=== PATIENT | male | born 1970 | race Caucasian/White ===

== ENCOUNTER 2018-09-06 11:08 | Observation (INO) ==
[2018-09-06] MEDS ORDERED: fentaNYL CITRATE/PF 50 MCG/ML AMPUL ONE (11:13)
[2018-09-06] MEDS ORDERED: DIPHTH,PERTUSS(ACELL),TET VAC 0.5 ML VIAL IM ONE (11:16)
[2018-09-06] MEDS ORDERED: ceFAZolin SODIUM/DEXTROSE,ISO 2 GM/50 ML BAG IV ONE ×2 (11:16→12:00)
[2018-09-06] MEDS ORDERED: fentaNYL CITRATE/PF 50 MCG/ML AMPUL IV ONE ×2 (11:17→11:46)
[2018-09-06 11:34] LABS: Hematocrit 38.1 % (42.0-52.0); Hemoglobin 12.5 gm/dL (13.5-18.0); Mean Cell Volume 87.8 fl (78-100); Mean Corpuscular Hemoglobin 28.8 pg (27-31); Mean Corpuscular Hgb Conc 32.8 g/dl (32-36); Neutrophil % 69.9 % (42-75.0); Platelet Count 386 K/mm3 (150-450); Red Blood Count 4.34 M/mm3 (4.7-6.0); Red Cell Distribution Width 13.4 % (11.5-14.0); White Blood Count 15.7 K/mm3 (4.0-10.5)
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
[2018-09-06 11:49] LABS: ALT 19 U/L (19-67); AST 23 U/L (0-48); Albumin * 3.4 gm/dl (3.4-5.0); Alkaline Phosphatase * 102 U/L (50-170); Anion Gap 22.1 mmol/L (6.8-13.8); BUN/Creatinine Ratio 11.4 (9.0-21.6); Bilirubin, Total 0.3 mg/dL (0.0-1.1); Blood Urea Nitrogen 15 mg/dL (6-23); Ca. Corrected For Albumin 9.3 mg/dL (8.4-10.2); Calcium * 9.1 mg/dL (7.9-10.9); Carbon Dioxide 18.8 mmol/L (24-32.6); Chloride 103 mmol/L (97-106); Glucose * 105 mg/dL (70-110); Potassium 3.9 mmol/L (3.4-4.6); Sodium 140 mmol/L (132-142); Total Protein 6.8 gm/dL (6.2-8.2)
[2018-09-06] MEDS ORDERED: NORMAL SALINE 1,000 ML IV PRN ×3 (13:04→14:00)
[2018-09-06 13:11] LABS: Cocaine Ur Negative (NEGATIVE); Urine Barbiturate Negative (NEGATIVE); Urine Benzodiazepines Negative (NEGATIVE); Urine Opiates Negative (NEGATIVE); Urine PCP Negative (NEGATIVE); Urine THC Negative (NEGATIVE)
[2018-09-06] MEDS ORDERED: ACETAMINOPHEN 325 MG TABLET PO PRN (14:50)
[2018-09-06] MEDS ORDERED: HYDROcodone/ACETAMINOPHEN 1 EACH TABLET PO PRN (14:50)
[2018-09-06] MEDS ORDERED: IBUPROFEN 800 MG TABLET PO PRN (14:50)
--- NOTE | 2018-09-06 15:06 | ANES ---
Anesthesia Pre Procedure Eval Vitals/Labs: Last Vital Signs Temp 36.0 C 09/06/18 11:41 Pulse 86 09/06/18 11:41 Resp 12 09/06/18 11:41 BP 97/41 09/06/18 11:41 Pulse Ox 94 09/06/18 11:41 HOME MEDICATIONS carBAMazepine [Tegretol] 200 mg PO BID #60 tab 11/18/17 [Last Taken Unknown] alprazolam 2 mg tablet 2 mg PO BID PRN #60 tab 09/03/18 [Last Taken Unknown] Allergies/Adverse Reactions: Allergies Allergy/AdvReac Type Severity Reaction Status Date / Time phenytoin sodium Allergy Intermediate Verified 02/23/12 19:58 [From Dilantin] phenytoin sodium extended Allergy Intermediate Verified 02/23/12 19:58 [From Dilantin] methylphenidate HCl Allergy Mild Verified 02/23/12 19:57 [From Ritalin] - Planned Procedure Planned Procedure: DOG BITE Medication List Reviewed:: Yes Allergies Verified: Yes Medical History (Updated 09/06/18 @ 11:44 by Tammy Jimenez DO) Seizures Surgical History (Updated 11/18/17 @ 20:37 by Madeline Albright RN) History of neck surgery - Airway/Neck/Teeth Within Normal Limits:: Yes Denture Type: Full upper, Full lower Mallampatti Score: 2 Thyromental (T-M) distance: > 6 cm Mandibulo Hyoid distance: > 3 cm Comments:: c-spine brace in place - Respiratory Respiratory Physical: decreased breath sounds Smoking Status: Current every day smoker Discussed smoking cessation including day of surgery: No - pt. unable to communicate Sleep Apnea currently treated: No Sleep Apnea by current assessment: No - Cardiovascular Tolerate Activity: Fair Heart Sounds: S1 & S2, Regular - Anesthesia Assessment and Plan ASA Class: PS, III, E Anesthesia Type Plan: General ET Planned difficult intubation/equipment available: No
--- NOTE | 2018-09-06 15:06 | ANES ---
Post Anesthesia Discharge - Transfer of Care Transfer of Care handoff given to nurse: Yes - Discharge from PACU Discharge from PACU when meets criteria: Yes
--- NOTE | 2018-09-06 15:09 | OR ---
Operative Report - Dictated Report Narrative: Date of Service: 09/06/18 Procedure: Closure of multiple dog bite lacerations Pre-procedure diagnosis: Multiple dog bite lacerations Post-procedure diagnosis: Same Surgeon: Dr. Tammy Jimenez Anesthesia: Gen. Indication for procedure: Reggie is a pleasant 47-year-old gentleman with multiple dog bite lacerations. Description of procedure: He was taken to the OR and placed in the supine position and general anesthesia was achieved. He was prepped and draped in the usual sterile fashion. We initially started with the left arm. Each area was irrigated with the Pulsavac tax agent. Dorsal left arm starting superiorly: 4 x 3 cm- closed with 3-0 Vicryl inverted interrupted, 4-0 nylon simple interrupted 9 x 2 cm- closed with 3-0 Vicryl inverted interrupted, 4-0 nylon simple interrupted 4x2 cm- closed with 3-0 Vicryl inverted interrupted, 4-0 nylon simple interrupted 4x2- closed with 3-0 Vicryl inverted interrupted, 4-0 nylon simple interrupted 7x2- closed with 3-0 Vicryl inverted interrupted, 4-0 nylon simple interrupted Volar left arm starting superiorly and going inferiorly .5cm- 4-0 nylon simple interrupted 1x0.5cm- 4-0 nylon simple interrupted 4x2cm- closed with 3-0 Vicryl inverted interrupted, 4-0 nylon simple interrupted 3x5cm- closed with 3-0 Vicryl inverted interrupted, 4-0 nylon simple interrupted 2x.5cm- 4-0 nylon simple interrupted Dorsal Right arm starting superiorly: 3x2cm closed with 3-0 Vicryl inverted interrupted, 4-0 nylon simple interrupted 3x2cm closed with 3-0 Vicryl inverted interrupted, 4-0 nylon simple interrupted 2x0.5cm closed with 3-0 Vicryl inverted interrupted, 4-0 nylon simple interrupted left lateral lex1cm closed with 3-0 Vicryl inverted interrupted, 4-0 nylon simple interrupted LLQ of abdomen 3x0.5cm closed with 4-0 nylon simple interrupted 0.5 x 0.5cm closed with 4-0 nylon simple interrupted left lateral chest 2x0.5cm closed with 4-0 nylon simple interrupted 1x 0.5 cm closed with 4-0 nylon simple interrupted At the end of the case he had a small 1cm laceration on the upper right arm closed with a staple, and an additional 1cm laceration of the left upper arm also closed with a single staple. Complications: none Specimens to pathology: none Estimated blood loss: minimal Disposition: He will be admitted to the floor for observation. His methamphetamine was positive. I cannot clear his C-spine. He has also developed swelling of the right ankle we'll obtain an x-ray. He will be started on Augmentin.
--- NOTE | 2018-09-06 15:23 | ANES ---
Post Anesthesia Assessment - Vital Signs Vitals: Last Vital Signs Temp 35.1 C L 09/06/18 15:00 Pulse 69 09/06/18 15:05 Resp 14 09/06/18 15:05 BP 132/80 09/06/18 15:05 Pulse Ox 98 09/06/18 15:05 Airway Patency: Normal - Mental Status Level Of Consciousness: Drowsy - Pain Level Pain Score: 5 - N/V Assessment Nausea/Vomiting Presence: None Dehydration:: No
[2018-09-06] MEDS: POTASSIUM CHLORIDE 20 MEQ in DEXTROSE 5%-0.5 NORMAL SALINE 990 ML IV SCH (16:19)
[2018-09-06] MEDS: AMOX TR/POTASSIUM CLAVULANATE 875 MG TABLET PO SCH (21:45)
[2018-09-07] MEDS: POTASSIUM CHLORIDE 20 MEQ in DEXTROSE 5%-0.5 NORMAL SALINE 990 ML IV SCH ×2 (02:50→12:00)
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
[2018-09-07] MEDS: AMOX TR/POTASSIUM CLAVULANATE 875 MG TABLET PO SCH (10:21)
[2018-09-07] MEDS ORDERED: BACITRACIN ZINC 30 APPL TUBE TP SCH (13:45)
[2018-09-07 18:18] VITALS: BP 132/73
== END 2018-09-07 18:00 | disposition home or self-care (01) ==
LOC: ER 11:08 → MS 11:08
PROVIDERS: ADMIT Surgery; ATTEND Surgery
CPT/HCPCS: 36415; 71010; 71045; 72170; 73610; 80053; 80307; 80320; 85025; 86850; 90715; 96365; 96366; 99291; G0378; G0390; G0481

== ENCOUNTER 2019-10-21 16:01 | Observation (INO) ==
[2019-10-21] MEDS ORDERED: NORMAL SALINE 1,000 ML IV ONE ×2 (16:49→19:27)
[2019-10-21] MEDS ORDERED: KETOROLAC TROMETHAMINE 30 MG/ML VIAL IV ONE (16:49)
--- NOTE | 2019-10-21 16:50 | ERNOTE ---
Upper Extremity HPI - Narrative Date of Service: 10/21/19 - General Extremities Pain Location: 2nd finger: left Time Seen by Provider: 10/21/19 16:37 Source: patient, family, RN notes reviewed Exam Limitations: clinical condition - Immun/Allergies/Home Medications Immunizations: IMMUNIZATION HX Immunizations Up to Date Yes History of Influenza Vaccine No Hx Pneumococcal Vaccination No Allergies/Adverse Reactions: Allergies Allergy/AdvReac Type Severity Reaction Status Date / Time phenytoin sodium Allergy Intermediate Seizures Verified 10/21/19 16:09 [From Dilantin] phenytoin sodium extended Allergy Intermediate Seizures Verified 10/21/19 16:09 [From Dilantin] methylphenidate HCl Allergy Mild Seizures Verified 10/21/19 16:09 [From Ritalin] Home Medications: HOME MEDICATIONS carBAMazepine [Tegretol] 200 mg PO BID #60 tab 11/18/17 [Last Taken Unknown] alprazolam 2 mg tablet 2 mg PO BID PRN #60 tab 10/13/19 [Last Taken Unknown] - History of Present Illness Narrative: William is a 48-year-old male who presents to the emergency department for an infection in his left index finger. He reports cutting himself with a utility knife 5 days ago. The finger has gradually became more red and edematous since. He reports that there has been a large amount of drainage coming from the wound. He has also began feeling ill with nausea and chills. His tetanus is current. He denies any history of previous wound infections. Occurred: last week Location of Incident: home Other Injuries: Reports: none Prior Treament: Denies: recently seen Review of Systems - Review of Systems Constitutional: Present: chills, malaise EYE: Present: no symptoms reported ENT: Present: no symptoms reported Respiratory: Absent: shortness of breath, cough Cardiology: Absent: chest pain, syncope Gastrointestinal/Abdominal: Present: nausea. Absent: vomiting, diarrhea Genitourinary: Present: no symptoms reported Musculoskeletal: Present: joint pain, joint swelling Skin: Present: lesions, change in color Neurological: Absent: headache, dizziness/light-headedness, seizure Endocrine: Present: no symptoms reported Hematologic/Lymphatic: Absent: easy bruising, easy bleeding Psych: Present: anxiety Medical History (Last Reviewed 10/21/19 @ 17:50 by Erin De Leon NP) Generalized anxiety disorder (Chronic) Dog bite of multiple sites Onset Date: 09/06/18 Back pain Onset Date: Unknown Chronic pain syndrome Onset Date: Unknown Insomnia Onset Date: Unknown Seizures Onset Date: Unknown Pneumothorax on right Onset Date: 01/21/14 Surgical History: Surgical History (Last Reviewed 10/21/19 @ 17:50 by Erin De Leon NP) history of repair of multiple dog bite lacerations Onset Date: 09/06/18 H/O chest tube placement Onset Date: 01/21/14 History of neck surgery Onset Date: Unknown Hx of tooth extraction Onset Date: ~2004 Upper and lower dentures Family History: Family History (Last Reviewed 10/21/19 @ 17:50 by Erin De Leon NP) Mother CVA (cerebral vascular accident) Breast cancer Seizures Father Diabetes unknown health history Sister Alive and well 2 sisters Brother Alive and well Social History: (Last Reviewed 10/21/19 @ 17:50 by Erin De Leon NP) Social History: Marital status: household members: spouse number of children: 3 current occupational status: disabled current occupational exposures/hazards: No Service: No Tobacco: Smoking Status: Current every day smoker Alcohol: alcohol intake: former Substance Use: substance use type: does not use Dietary Habits: caffeine: Yes caffeine comment: Current every day Personal Safety: victim of physical abuse: No victim of emotional abuse: No Physical Exam - Physical Exam General Appearance: Present: wd/wn, alert, mild distress Head Exam: Present: normal inspection Eye Exam: Normal inspection: bilateral Respiratory: Present: no respiratory distress, normal breath sounds, no accessory muscle use, lungs clear Cardiovascular/Chest: Present: no murmur, normal peripheral pulses, tachycardia Extremity Exam: Present: normal except - - Irregular shaped wound with purulent drainage to dorsal aspect of left index finger, entire digit is erythematous and extremely edematous Neurological Exam: Present: alert, oriented, normal mood/affect, no motor/sensory deficits Skin Exam: Present: normal color, warm/dry Progress - Results and Orders Patient's Lab Results:: I have reviewed the patient's lab results. - Vital Signs Patient's Vital Signs:: I have reviewed the patient's vital signs. Vital Signs: Vital Signs 10/21/19 16:06 Temperature 37.6 C Pulse Rate 118 H Respiratory Rate 16 Blood Pressure 150/108 H O2 Sat by Pulse Oximetry 98 - X-Ray X-Ray #1 X-Ray: hand - Left Interpretation: Interp. by me X-ray Comments: Soft tissue swelling of the left index finger without acute osseous findings - Progress/Reassessment Chief Complaint: Hand Injury/Pain Progress:: Improved Plan - Plan Plan: The patient reports improvement in pain after Toradol. WBC markedly elevated at 18.9K and lactic acid is 2.3. CRP is also elevated at 6.3. Blood and wound cultures are pending. The patient is receiving a liter of IV NS and Vancomycin has been ordered. Dr. Melchor was contacted and recommended admission for IV antibiotics, as well as a MRI for further evaluation. Dr. Nelson agreed to admit the patient medically and an orthopedic consult has been ordered. Departure Clinical Impression: Cellulitis of index finger Qualifiers: Laterality: left Qualified Code(s): L03.012 - Cellulitis of left finger - Departure Disposition: Still a patient Condition: Stable
[2019-10-21 17:03] LABS: Hematocrit 40.5 % (42.0-52.0); Hemoglobin 13.4 gm/dL (13.5-18.0); Mean Cell Volume 84.2 fl (78-100); Mean Corpuscular Hemoglobin 27.9 pg (27-31); Mean Corpuscular Hgb Conc 33.1 g/dl (32-36); Mean Platelet Volume 8.6 fl (8-11.3); Platelet Count 445 K/mm3 (150-450); Red Blood Count 4.81 M/mm3 (4.7-6.0); Red Cell Distribution Width 13.5 % (11.5-14.0); White Blood Count 18.6 K/mm3 (4.0-10.5)
[2019-10-21 17:05] LABS: Total Cells Counted 100
[2019-10-21 17:17] LABS: Albumin * 3.1 gm/dl (3.4-5.0); Anion Gap 12.2 mmol/L (6.8-13.8); BUN/Creatinine Ratio 9.3 (9.0-21.6); Bilirubin, Total 0.1 mg/dL (0.0-1.1); CRP 6.3 mg/dL (0.0-0.9); Ca. Corrected For Albumin 9.6 mg/dL (8.4-10.2); Calcium * 9.2 mg/dL (7.9-10.9); Carbon Dioxide 28.7 mmol/L (24-32.6); Potassium 3.9 mmol/L (3.4-4.6); Total Protein 7.6 gm/dL (6.2-8.2)
[2019-10-21 17:38] LABS: Band 2 % (0-2.0); Basophil 1 % (0-1); Lymphocyte 25 % (20-51); Monocyte 11 % (0-9); Neutrophil 61 % (42-75); Neutrophil # 11.3 K/mm3 (1.3-6.0)
[2019-10-21 17:39] LABS: Platelet Estimate Normal (NORMAL)
[2019-10-21 17:40] LABS: RBC Morphology Normal (NORMAL)
[2019-10-21] MEDS ORDERED: VANCOMYCIN/WATER FOR INJ (PEG) 1 GM/200 ML BAG IV ONE (17:47)
[2019-10-21] MEDS ORDERED: ALPRAZolam 1 MG TABLET PO PRN (19:30)
--- NOTE | 2019-10-21 19:52 | HP ---
Chief Complaint - Chief Complaint Date of Service: 10/21/19 Time of Service: 19:41 Chief Complaint: I have left index finger pain from a cut History of Present Illness: 48-year-old male with past medical history of epilepsy and anxiety disorder was evaluated in the ER for pain and swelling of his left index finger secondary to a laceration the patient sustained when he cut his finger with a utility knife while cutting some sheet rock. Patient reports he went to cut the street rack and the knife tip sliced the dorsum of the left index finger. He also discovered that metallic fragments from the sheet rock had also invaded the laceration. After removing the debris and fragments from his finger the patient washed the lesion applied pressure and triple antibiotics interrupted and a gauze. He proceeded to take ibuprofen for pain. However over the past few days the patient's pain increased and the involved finger became extremely swollen and started draining fluid. The patient also developed fever and chills so he decided to come to the ER for evaluation. Prior to this he had not sought any medical attention. Of note the patient has a history of epilepsy and admits to not taking his Tegretol for more than a month which would explain his low level labs, but he denies it having any recent seizures over the past few months. Medical History (Last Reviewed 10/21/19 @ 17:50 by Erin De Leon NP) Generalized anxiety disorder (Chronic) Dog bite of multiple sites Onset Date: 09/06/18 Back pain Onset Date: Unknown Chronic pain syndrome Onset Date: Unknown Insomnia Onset Date: Unknown Seizures Onset Date: Unknown Pneumothorax on right Onset Date: 01/21/14 Surgical History: Surgical History (Last Reviewed 10/21/19 @ 17:50 by Erin De Leon NP) history of repair of multiple dog bite lacerations Onset Date: 09/06/18 H/O chest tube placement Onset Date: 01/21/14 History of neck surgery Onset Date: Unknown Hx of tooth extraction Onset Date: ~2004 Upper and lower dentures Family History: Family History (Last Reviewed 10/21/19 @ 17:50 by Erin De Leon NP) Mother CVA (cerebral vascular accident) Breast cancer Seizures Father Diabetes unknown health history Sister Alive and well 2 sisters Brother Alive and well Social History: (Last Reviewed 10/21/19 @ 17:50 by Erin De Leon NP) Social History: Marital status: household members: spouse number of children: 3 current occupational status: disabled current occupational exposures/hazards: No Service: No Tobacco: Smoking Status: Current every day smoker Alcohol: alcohol intake: former Substance Use: substance use type: does not use Dietary Habits: caffeine: Yes caffeine comment: Current every day Personal Safety: victim of physical abuse: No victim of emotional abuse: No Peds Patient Hx - Developmental: No Pertinent Hx Peds Patient Hx - Medical: Seizures Peds Patient Hx - Cardiac/Respiratory: No Pertinent Hx Peds Patient Hx - Surgical: No Surgical History Patient History - Cancer: No Hx of Cancer Review Of Systems (GEN) - Review of Systems Generalized/Overall Review: Present: Chills, Fever EENTM: Present: No Symptoms Reported Respiratory: Present: No Symptoms Reported Cardiac: Present: No Symptoms Reported Abdominal: Present: No Symptoms Reported Genitourinary: Present: No Symptoms Reported Musculoskeletal: Present: Joint Pain Neurological: Present: No Symptoms Reported Skin: Present: Other - Pain and swelling of infected wound on dorsum of left index finger Endocrine: Present: No Symptoms Reported Immunizations: IMMUNIZATION HX Immunizations Up to Date Yes History of Influenza Vaccine No Hx Pneumococcal Vaccination No Allergies/Adverse Reactions: Allergies Allergy/AdvReac Type Severity Reaction Status Date / Time phenytoin sodium Allergy Intermediate Seizures Verified 10/21/19 19:33 [From Dilantin] phenytoin sodium extended Allergy Intermediate Seizures Verified 10/21/19 19:33 [From Dilantin] methylphenidate HCl Allergy Mild Seizures Verified 10/21/19 19:33 [From Ritalin] Home Medications: HOME MEDICATIONS carBAMazepine [Tegretol] 200 mg PO BID #60 tab 11/18/17 [Last Taken Unknown] alprazolam 2 mg tablet 2 mg PO BID PRN #60 tab 10/13/19 [Last Taken Unknown] Exam - Exam Vital Signs: Vital Signs - Last Taken Temp 37.6 C 10/21/19 17:01 Pulse 87 10/21/19 17:01 Resp 20 10/21/19 17:01 BP 148/67 H 10/21/19 17:01 Pulse Ox 95 10/21/19 17:01 Constitutional: Present: Alert, Oriented x3, Cooperative, Well developed, Well nourished, No distress ENT Exam: Present: normal ENT inspection, hearing grossly normal, pharynx normal, TMs normal Eye Exam: bilateral eye: normal inspection, PERRL, EOMI Neck: Present: non-tender, full range of motion, supple, normal inspection, trachea midline Back Exam: Present: normal inspection, no CVA tenderness, no vertebral tenderness Breasts: Present: Exam deferred Respiratory: Present: chest non-tender, lungs clear, normal breath sounds, no respiratory distress, no accessory muscle use Cardiovascular/Chest: Present: normal peripheral pulses, regular rate, rhythm, no chest tenderness, no edema, no gallop, no JVD, no murmur, no rub Peripheral Pulses: carotid (R): 3+, carotid (L): 3+, dorsalis-pedis (R): 3+, dorsalis-pedis (L): 3+ Abdomen: Present: Normal bowel sounds, soft, nontender, nondistended, no rebound tenderness, no hepatospenomegaly, no masses /Rectal: Present: Exam deferred Extremity: Present: normal range of motion, non-tender, normal inspection, no pedal edema, no calf tenderness, normal capillary refill, pelvis stable, other - Erythematous and edematous left second digit with open deformed laceration with purulent drainage and foul odor. Skin Exam: Present: normal color, warm/dry, no cyanosis Lymphatic: Present: no adenopathy Neurologic: Present: strategic sourcing manager II-XII nml as tested, normal cerebellar test, no motor/sensory deficits, alert, normal mood/affect, oriented x 3 Appearance: Present: appropriate appearance, appropriate insight, neat, no memory impairment Eye contact: Present: cooperative, good eye contact, normal speech Thoughts: Present: normal thought pattern Diagnostic Studies: Abnormal Lab Results 10/21/19 10/21/19 10/21/19 Range/Units 16:56 16:56 16:56 WBC 18.6 H (4.0-10.5) K/mm3 Hgb 13.4 L (13.5-18.0) gm/dL Hct 40.5 L (42.0-52.0) % Monocytes % (Manual) 11 H (0-9) % Neutrophils # (Manual) 11.3 H (1.3-6.0) K/mm3 Lymphocytes # (Manual) 4.7 H (1.5-3.5) k/mm3 Monocytes # (Manual) 2.0 H (0.0-1.0) k/mm3 Basophils # (Manual) 0.2 H (0.0-0.1) k/mm3 Random Glucose 116 H (70-110) mg/dL Lactic Acid, Venous 2.3 H* (0.4-2.0) mmol/L C-Reactive Prot, Quant 6.3 H (0.0-0.9) mg/dL Albumin 3.1 L (3.4-5.0) gm/dl Carbamazepine 0.0 L (4.0-12.0) mcg/mL Laboratory Results WBC 18.6 K/mm3 (4.0-10.5) H 10/21/19 16:56 RBC 4.81 M/mm3 (4.7-6.0) 10/21/19 16:56 Hgb 13.4 gm/dL (13.5-18.0) L 10/21/19 16:56 Hct 40.5 % (42.0-52.0) L 10/21/19 16:56 MCV 84.2 fl (78-100) 10/21/19 16:56 MCH 27.9 pg (27-31) 10/21/19 16:56 MCHC 33.1 g/dl (32-36) 10/21/19 16:56 RDW 13.5 % (11.5-14.0) 10/21/19 16:56 Plt Count 445 K/mm3 (150-450) 10/21/19 16:56 MPV 8.6 fl (8-11.3) 10/21/19 16:56 Neutrophils % (Manual) 61 % (42-75) 10/21/19 16:56 Band Neuts % (Manual) 2 % (0-2.0) 10/21/19 16:56 Lymphocytes % (Manual) 25 % (20-51) 10/21/19 16:56 Monocytes % (Manual) 11 % (0-9) H 10/21/19 16:56 Basophils % (Manual) 1 % (0-1) 10/21/19 16:56 Neutrophils # (Manual) 11.3 K/mm3 (1.3-6.0) H 10/21/19 16:56 Lymphocytes # (Manual) 4.7 k/mm3 (1.5-3.5) H 10/21/19 16:56 Monocytes # (Manual) 2.0 k/mm3 (0.0-1.0) H 10/21/19 16:56 Basophils # (Manual) 0.2 k/mm3 (0.0-0.1) H 10/21/19 16:56 Platelet Estimate Normal (NORMAL) 10/21/19 16:56 RBC Morphology Normal (NORMAL) 10/21/19 16:56 Sodium 139 mmol/L (132-142) 10/21/19 16:56 Plasma Sodium 139 mmol/L (130-142) 10/21/19 16:56 Potassium 3.9 mmol/L (3.4-4.6) 10/21/19 16:56 Chloride 102 mmol/L (97-106) 10/21/19 16:56 Carbon Dioxide 28.7 mmol/L (24-32.6) 10/21/19 16:56 Anion Gap 12.2 mmol/L (6.8-13.8) 10/21/19 16:56 BUN 10 mg/dL (6-23) 10/21/19 16:56 Creatinine 1.07 mg/dL (0.4-1.4) 10/21/19 16:56 Est GFR (Non-Af Amer) 78 mL/min (60-130) D 10/21/19 16:56 BUN/Creatinine Ratio 9.3 (9.0-21.6) 10/21/19 16:56 Random Glucose 116 mg/dL (70-110) H 10/21/19 16:56 Lactic Acid, Venous 2.3 mmol/L (0.4-2.0) H* 10/21/19 16:56 Calcium 9.2 mg/dL (7.9-10.9) 10/21/19 16:56 Calcium Adj for Albumin 9.6 mg/dL (8.4-10.2) 10/21/19 16:56 Total Bilirubin 0.1 mg/dL (0.0-1.1) 10/21/19 16:56 AST 15 U/L (0-48) 10/21/19 16:56 ALT 20 U/L (19-67) 10/21/19 16:56 Alkaline Phosphatase 96 U/L (50-170) 10/21/19 16:56 C-Reactive Prot, Quant 6.3 mg/dL (0.0-0.9) H 10/21/19 16:56 Total Protein 7.6 gm/dL (6.2-8.2) 10/21/19 16:56 Albumin 3.1 gm/dl (3.4-5.0) L 10/21/19 16:56 Carbamazepine 0.0 mcg/mL (4.0-12.0) L 10/21/19 16:56 Assessment/Plan - Narrative Narrative: Patient was evaluated and medical chart was reviewed and decision to admit for cellulitis of left index finger was made. Labs done in the ER demonstrate significant leukocytosis with left shift, and elevated CRP, and a positive lactic acid confirming significant systemic infection. Patient was started on IV fluids and IV antibiotics which he is tolerating without any issues. He was also administered pain medications which has provided adequate control of his pain. Ortho has been consulted and has recommended additional imaging done tomorrow morning for further evaluation of the patient's finger. Therefore we will order CT scan of the left hand for tomorrow morning since there is a contraindication to MRI given metallic screws in the patient's cervical region to repair a previous injury. His tetanus is currently up-to-date. - Assessment/Plan (1) Cellulitis of index finger Problem: Acute Qualifiers: Laterality: left Qualified Code(s): L03.012 - Cellulitis of left finger (2) Generalized anxiety disorder Problem: Chronic (3) Seizure Problem: Acute (4) SIRS (systemic inflammatory response syndrome) Problem: Acute
[2019-10-21] MEDS ORDERED: amLODIPine BESYLATE 5 MG TABLET PO ONE (19:55)
[2019-10-21] MEDS: carBAMazepine 200 MG TABLET PO SCH (20:42)
[2019-10-22] MEDS: KETOROLAC TROMETHAMINE 30 MG/ML VIAL IV PRN ×4 (01:13→23:02)
[2019-10-22 06:43] LABS: Albumin * 2.7 gm/dl (3.4-5.0); Anion Gap 9.7 mmol/L (6.8-13.8); BUN/Creatinine Ratio 9.9 (9.0-21.6); Bilirubin, Total 0.2 mg/dL (0.0-1.1); Ca. Corrected For Albumin 9.4 mg/dL (8.4-10.2); Calcium * 8.7 mg/dL (7.9-10.9); Carbon Dioxide 29.1 mmol/L (24-32.6); Potassium 3.8 mmol/L (3.4-4.6); Total Protein 6.7 gm/dL (6.2-8.2)
[2019-10-22 06:47] LABS: Hematocrit 38.6 % (42.0-52.0); Hemoglobin 12.4 gm/dL (13.5-18.0); Mean Cell Volume 84.8 fl (78-100); Mean Corpuscular Hemoglobin 27.3 pg (27-31); Mean Corpuscular Hgb Conc 32.1 g/dl (32-36); Mean Platelet Volume 8.9 fl (8-11.3); Platelet Count 428 K/mm3 (150-450); Red Blood Count 4.55 M/mm3 (4.7-6.0); Red Cell Distribution Width 13.7 % (11.5-14.0); White Blood Count 14.5 K/mm3 (4.0-10.5)
[2019-10-22 06:49] LABS: Total Cells Counted 100
[2019-10-22 07:07] LABS: Band 1 % (0-2.0); Eosinophil 2 % (0-3); Lymphocyte 18 % (20-51); Monocyte 6 % (0-9); Neutrophil 73 % (42-75); Neutrophil # 10.6 K/mm3 (1.3-6.0)
[2019-10-22 07:16] LABS: Platelet Estimate Normal (NORMAL); RBC Morphology Normal (NORMAL)
[2019-10-22] MEDS: carBAMazepine 200 MG TABLET PO SCH ×2 (08:02→20:52)
[2019-10-22] MEDS: VANCOMYCIN/WATER FOR INJ (PEG) 1 GM/200 ML BAG IV SCH ×2 (09:06→20:52)
--- NOTE | 2019-10-22 09:50 | PN ---
Subjective - Date and Time Seen Date: 10/22/19 Time: 09:38 Subjective Narrative: The pain in my finger is better. Objective Objective Narrative: 48-year-old male admitted for cellulitis of his left index finger was evaluated at bedside was found to be afebrile and in no acute distress. Patient reports adequate control of his pain and appears to be comfortable. Labs this morning revealed improvement of his leukocytosis which indicates adequate response with the IV antibiotics and other treatments he is receiving. Imaging has been ordered for this morning for complete evaluation of the infection in his finger and Ortho has been consulted. Patient has a past surgical history of what he calls it bridging work with metal screws, however the patient does not recall the details of the surgery and what kind of metal was used. We will contact the [facility] the procedure was done to acquire more detail before doing the imaging. - Review of Systems Generalized/Overall Review: Reports: No Symptoms Reported EENTM: Reports: No Symptoms Reported Respiratory: Reports: No Symptoms Reported Cardiac: Reports: No Symptoms Reported Abdominal: Reports: No Symptoms Reported Genitourinary Symptoms: Reports: No Symptoms Reported Musculoskeletal Complaints: Reports: Joint Pain - Left index finger pain and swelling Neurological: Reports: No Symptoms Reported Skin: Reports: No Symptoms Reported Endocrine: Reports: No Symptoms Reported - Vitals Vitals: Last Vital Signs Temp 36.2 C 10/22/19 07:00 Pulse 91 10/22/19 07:00 Resp 16 10/22/19 07:00 BP 134/86 10/22/19 07:00 Pulse Ox 95 10/22/19 07:00 - Abnormal Lab Findings Abnormal Lab Findings: Abnormal Lab Results 10/21/19 10/21/19 10/21/19 Range/Units 16:56 16:56 16:56 WBC 18.6 H (4.0-10.5) K/mm3 RBC (4.7-6.0) M/mm3 Hgb 13.4 L (13.5-18.0) gm/dL Hct 40.5 L (42.0-52.0) % Lymphocytes % (Manual) (20-51) % Monocytes % (Manual) 11 H (0-9) % Neutrophils # (Manual) 11.3 H (1.3-6.0) K/mm3 Lymphocytes # (Manual) 4.7 H (1.5-3.5) k/mm3 Monocytes # (Manual) 2.0 H (0.0-1.0) k/mm3 Basophils # (Manual) 0.2 H (0.0-0.1) k/mm3 Random Glucose 116 H (70-110) mg/dL Lactic Acid, Venous 2.3 H* (0.4-2.0) mmol/L C-Reactive Prot, Quant 6.3 H (0.0-0.9) mg/dL Albumin 3.1 L (3.4-5.0) gm/dl Carbamazepine 0.0 L (4.0-12.0) mcg/mL 10/22/19 10/22/19 Range/Units 06:26 06:26 WBC 14.5 H D (4.0-10.5) K/mm3 RBC 4.55 L (4.7-6.0) M/mm3 Hgb 12.4 L (13.5-18.0) gm/dL Hct 38.6 L (42.0-52.0) % Lymphocytes % (Manual) 18 L (20-51) % Monocytes % (Manual) (0-9) % Neutrophils # (Manual) 10.6 H (1.3-6.0) K/mm3 Lymphocytes # (Manual) (1.5-3.5) k/mm3 Monocytes # (Manual) (0.0-1.0) k/mm3 Basophils # (Manual) (0.0-0.1) k/mm3 Random Glucose (70-110) mg/dL Lactic Acid, Venous (0.4-2.0) mmol/L C-Reactive Prot, Quant (0.0-0.9) mg/dL Albumin 2.7 L (3.4-5.0) gm/dl Carbamazepine (4.0-12.0) mcg/mL - Exam Constitutional: Present: Alert, Oriented x3, Cooperative, Well developed, Well nourished, No distress ENT Exam: Present: normal ENT inspection, hearing grossly normal, pharynx normal, TMs normal Neck: Present: non-tender, supple, normal inspection, trachea midline Breasts: Present: Exam deferred, Nontender Respiratory: Present: chest non-tender, lungs clear, normal breath sounds, no respiratory distress, no accessory muscle use Cardiovascular/Chest: Present: normal peripheral pulses, regular rate, rhythm, no chest tenderness, no edema, no gallop, no JVD, no murmur, no rub Abdomen: Present: Normal bowel sounds, soft, nontender, nondistended, no rebound tenderness, no hepatospenomegaly, no masses /Rectal: Present: Exam deferred Extremity: Present: normal range of motion, non-tender, normal inspection, no pedal edema, no calf tenderness, normal capillary refill, pelvis stable, other - Erythematous and edematous left index finger with drainage Skin Exam: Present: normal color, warm/dry, no cyanosis Lymphatic: Present: no adenopathy Neurologic: Present: core shaper top II-XII nml as tested, normal cerebellar test, no motor/sensory deficits, alert, normal mood/affect, oriented x 3 Appearance: Present: appropriate appearance, appropriate insight, neat, no memory impairment Eye contact: Present: cooperative, good eye contact, normal speech Thoughts: Present: normal thought pattern, no apparent hallucination Assessment/Plan Plan Narrative: Efforts will be made to acquire the patient's records at the [facility] to get more details about the metallic screws in his cervical back before doing the imaging. Once we get imaging results we will follow-up with recommendation from Ortho. In the meantime we will keep patient on IV hydration as well as IV antibiotics. Culture of his wound revealed growth of Staphylococcus aureus so we will keep on the vancomycin which should provide adequate coverage. - Problems/Diagnosis (1) Cellulitis of index finger Problem: Acute Qualifiers: Laterality: left Qualified Code(s): L03.012 - Cellulitis of left finger (2) Generalized anxiety disorder Problem: Chronic (3) Seizure Problem: Acute (4) SIRS (systemic inflammatory response syndrome) Problem: Acute
--- NOTE | 2019-10-22 16:05 | CONS ---
- Reason for consultation (1) Cellulitis of index finger Date of Service: 10/22/19 HPI - General Date of Service: 10/22/19 Narrative: Patient is a 48-year-old male who presented with a significant infection of his left index finger. Patient notes he believes this began after he cut it with a box sealing machine feeder many days previously. He notes that he had tried to treat the infection at home with triple antibiotic however it continued to progress and worsen including increasing pain. Patient has significant impairment in his overall function he states. He notes that his pain is worse movement better with rest. He does note that he had significant drainage prior to arrival. He does not note any previous antibiotics otherwise. He does not note any other previous injuries to this finger. He does note overall decrease in function and ability to perform activities of daily living with this finger. Source: patient - History of Present Illness Allergies/Adverse Reactions: Allergies phenytoin sodium [From Dilantin] Allergy (Intermediate, Verified 10/21/19 19:33) Seizures phenytoin sodium extended [From Dilantin] Allergy (Intermediate, Verified 10/21/19 19:33) Seizures methylphenidate HCl [From Ritalin] Allergy (Mild, Verified 10/21/19 19:33) Seizures Home Medications: Home Medications Medication Instructions Recorded Last Taken carBAMazepine [Tegretol] 200 mg PO BID #60 tab 11/18/17 Unknown alprazolam 2 mg tablet 2 mg PO BID PRN #60 tab 10/13/19 Unknown Procedures Application of splint (04/20/11) Medications - Medications Current Medications: Current Medications Carbamazepine (Tegretol) 200 mg PO BID ALF Stop: 11/20/19 21:01 Last Admin: 10/22/19 08:02 Dose: 200 mg Documented by: VANCOMYCIN/WATER FOR INJ (PEG) (Vancomycin) 1 gm in 200 mls @ 75 mls/hr IV Q12H ALF Stop: 11/21/19 09:01 Last Infusion: 10/22/19 12:34 Dose: Infused Documented by: Ketorolac Tromethamine (Toradol) 30 mg IV Q6H PRN PRN Reason: Pain Stop: 10/26/19 19:22 Last Admin: 10/22/19 10:09 Dose: 30 mg Documented by: Physical Examination - Exam Vital Signs: Vital Signs - Last Taken Temp 36.6 C 10/22/19 15:00 Pulse 101 H 07/15/20 15:00 Resp 18 10/22/19 15:00 BP 142/75 H 10/22/19 15:00 Pulse Ox 98 10/22/19 15:00 O2 Oxygen Delivery Method Room Air Constitutional: Present: Alert, Cooperative, No distress Extremity: Present: other - LUE--> diffuse maceration of left index finger with significant skin sloughing and purulent drainage diffusely on the dorsal and volar surfaces, significant erythema extending proximally, overall altered sensation, diffuse edema, tenderness palpation diffusely about the index finger, capillary refill evident with significant impairment due to overall edema Appearance: Present: appropriate appearance Eye contact: Present: cooperative Thoughts: Present: normal thought pattern - Results and Findings: Lab/Microbiology results last 24 hrs: Abnormal/Pending Laboratory Last 24 HRS 10/22/19 10/22/19 10/21/19 06:26 06:26 16:56 WBC 14.5 H D RBC 4.55 L Hgb 12.4 L Hct 38.6 L Lymphocytes % (Manual) 18 L Monocytes % (Manual) Neutrophils # (Manual) 10.6 H Lymphocytes # (Manual) Monocytes # (Manual) Basophils # (Manual) Random Glucose Lactic Acid, Venous 2.3 H* C-Reactive Prot, Quant Albumin 2.7 L Carbamazepine 10/21/19 10/21/19 16:56 16:56 WBC 18.6 H RBC Hgb 13.4 L Hct 40.5 L Lymphocytes % (Manual) Monocytes % (Manual) 11 H Neutrophils # (Manual) 11.3 H Lymphocytes # (Manual) 4.7 H Monocytes # (Manual) 2.0 H Basophils # (Manual) 0.2 H Random Glucose 116 H Lactic Acid, Venous C-Reactive Prot, Quant 6.3 H Albumin 3.1 L Carbamazepine 0.0 L Culture 10/21/19 17:55 Wound Culture - Preliminary Finger Staphylococcus Species - Assessments/Findings (1) Cellulitis of index finger Problem: Acute Qualifiers: Laterality: left Qualified Code(s): L03.012 - Cellulitis of left finger Plan - Plan Plan: -48-year-old male with diffuse cellulitis about his left index finger -MRI was obtained today revealed possible fluid collection including hematoma versus abscess versus soft tissue edema, after clinical correlation with Dr. Melchor significant concern for a abscess possibly on the dorsal and volar surfaces. Dressing change was performed using Xeroform, sterile 4 x 4's, tube gauze. Patient tolerated dressing change well however he does have significant pain. We discussed with patient conservative or surgical intervention with an I&D and formal washout. Based on significant signs of infection and possible fluctuant areas would recommend a more formal surgical based approach. C ontinuing IV antibiotics as patient's overall clinical picture has improved since the initiation. Patient will undergo surgery on 10/23/2019, consents will be obtained prior to surgical intervention. Patient stressed understanding to this treatment plan and agreed to proceed. Patient will continue to be monitored in the hospital at this time, he does not appear significantly septic with any systemic type infection. We will continue to monitor patient's overall clinical picture. -Continue medicine recommendations for all other chronic medical conditions -Maintain dressing in place until surgical intervention -Continue IV antibiotics
[2019-10-22] MEDS ORDERED: VANCOMYCIN/WATER FOR INJ (PEG) 1 GM/200 ML BAG IV SCH (18:00)
[2019-10-22] MEDS: ACETAMINOPHEN 325 MG TABLET PO PRN (19:30)
[2019-10-22] MEDS: NORMAL SALINE 1,000 ML IV PRN (23:47)
[2019-10-23 06:28] LABS: Hemoglobin 12.2 gm/dL (13.5-18.0); Mean Cell Volume 84.8 fl (78-100); Mean Corpuscular Hemoglobin 27.2 pg (27-31); Mean Corpuscular Hgb Conc 32.1 g/dl (32-36); Mean Platelet Volume 8.6 fl (8-11.3); Neutrophil # 7.6 K/mm3 (1.3-6.0); Neutrophil % 66.7 % (42-75.0); Platelet Count 425 K/mm3 (150-450); Red Blood Count 4.48 M/mm3 (4.7-6.0); Red Cell Distribution Width 13.5 % (11.5-14.0); White Blood Count 11.3 K/mm3 (4.0-10.5)
[2019-10-23] MEDS: NORMAL SALINE 1,000 ML IV PRN ×3 (08:05→23:37)
--- NOTE | 2019-10-23 08:33 | ANES ---
Anesthesia Pre Procedure Eval Vitals/Labs: Last Vital Signs Temp 36.5 C 10/23/19 06:46 Pulse 87 10/23/19 06:46 Resp 14 10/23/19 06:46 BP 121/84 10/23/19 06:46 Pulse Ox 98 10/23/19 06:46 HOME MEDICATIONS carBAMazepine [Tegretol] 200 mg PO BID #60 tab 11/18/17 [Last Taken Unknown] alprazolam 2 mg tablet 2 mg PO BID PRN #60 tab 10/13/19 [Last Taken Unknown] Allergies/Adverse Reactions: Allergies Allergy/AdvReac Type Severity Reaction Status Date / Time phenytoin sodium Allergy Intermediate Seizures Verified 10/21/19 19:33 [From Dilantin] phenytoin sodium extended Allergy Intermediate Seizures Verified 10/21/19 19:33 [From Dilantin] methylphenidate HCl Allergy Mild Seizures Verified 10/21/19 19:33 [From Ritalin] - Planned Procedure Planned Procedure: Cellulitis Left Index Finger Medication List Reviewed:: Yes Allergies Verified: Yes Medical History (Last Reviewed 10/23/19 @ 08:29 by Reggie Villaseñor CRNA) Generalized anxiety disorder (Chronic) Dog bite of multiple sites Onset Date: 09/06/18 Back pain Onset Date: Unknown Chronic pain syndrome Onset Date: Unknown Insomnia Onset Date: Unknown Seizures Onset Date: Unknown Pneumothorax on right Onset Date: 01/21/14 Surgical History (Last Reviewed 10/23/19 @ 08:29 by Reggie Villaseñor CRNA) history of repair of multiple dog bite lacerations Onset Date: 09/06/18 H/O chest tube placement Onset Date: 01/21/14 History of neck surgery Onset Date: Unknown Hx of tooth extraction Onset Date: ~2004 Upper and lower dentures Family History (Last Reviewed 10/23/19 @ 08:29 by Reggie Villaseñor CRNA) Mother CVA (cerebral vascular accident) Breast cancer Seizures Father Diabetes unknown health history Sister Alive and well 2 sisters Brother Alive and well - Family Anesthesia History Family History:: no untoward family reactions to anesthesia, no familial bleeding tendencies, no family history of clotting disorders, no family history of premature - Airway/Neck/Teeth Within Normal Limits:: Yes Teeth Condition: none Denture Type: Full upper, Full lower Neck Exam: full range of motion Mallampatti Score: 2 Thyromental (T-M) distance: > 6 cm Mandibulo Hyoid distance: > 3 cm - Respiratory Respiratory Physical: lungs clear Smoking Status: Current every day smoker - none for 3 days Sleep Apnea currently treated: No Sleep Apnea by current assessment: No - Cardiovascular Tolerate Activity: Fair Heart Sounds: S1 & S2, Regular - Gastrointestinal NPO since: 0 Comments:: anxiety and seizures on benzodiazapine - Anesthesia Assessment and Plan ASA Class: PS, II Anesthesia Type Plan: MAC
[2019-10-23] MEDS ORDERED: PROPOFOL VIAL IV ONE (08:41)
[2019-10-23] MEDS ORDERED: fentaNYL CITRATE/PF 50 MCG/ML AMPUL ONE (08:41)
[2019-10-23] MEDS ORDERED: BUPIVACAINE HCL 50 ML VIAL IJ ONE ×2 (08:41→11:33)
[2019-10-23] MEDS ORDERED: VANCOMYCIN HCL LEVEL XX ONE (09:20)
[2019-10-23] MEDS: carBAMazepine 200 MG TABLET PO SCH ×2 (09:34→21:45)
[2019-10-23] MEDS: VANCOMYCIN/WATER FOR INJ (PEG) 1 GM/200 ML BAG IV SCH ×2 (09:34→21:45)
--- NOTE | 2019-10-23 10:08 | PN ---
Subjective - Date and Time Seen Date: 10/23/19 Time: 09:59 Subjective Narrative: Still having finger pain. Objective Objective Narrative: 48-year-old male admitted for cellulitis of his left index finger was evaluated at bedside was found to be afebrile and in no acute distress. Patient's MRI was negative for osteomyelitis but he was found to have a hematoma versus a abscess with significant soft tissue inflammation. He was evaluated by Ortho who scheduled him for an incision and drainage of the finger and to clean out the infection. In the meantime the patient continues on IV antibiotics specifically Vanco which is sufficient coverage for the Staphylococcus he is growing however this morning lab reported an additional organism that is also growing. The organism was said to be gram-negative so we will add an additional antibiotic for adequate coverage. He denies any new symptoms and appears to be comfortable and has maintained stable vitals with no fever but reports occasional pain in his finger which is being managed with pain medications. We will follow-up after the procedure. - Review of Systems Generalized/Overall Review: Reports: No Symptoms Reported EENTM: Reports: No Symptoms Reported Respiratory: Reports: No Symptoms Reported Cardiac: Reports: No Symptoms Reported Abdominal: Reports: No Symptoms Reported Genitourinary Symptoms: Reports: No Symptoms Reported Musculoskeletal Complaints: Reports: Joint Pain Neurological: Reports: No Symptoms Reported Skin: Reports: Lesions, Other - Infected wound on left index finger Endocrine: Reports: No Symptoms Reported - Vitals Vitals: Last Vital Signs Temp 36.5 C 10/23/19 06:46 Pulse 87 10/23/19 06:46 Resp 14 10/23/19 06:46 BP 121/84 10/23/19 06:46 Pulse Ox 98 10/23/19 06:46 - Abnormal Lab Findings Abnormal Lab Findings: Abnormal Lab Results 10/23/19 10/23/19 Range/Units 06:10 09:19 WBC 11.3 H D (4.0-10.5) K/mm3 RBC 4.48 L (4.7-6.0) M/mm3 Hgb 12.2 L (13.5-18.0) gm/dL Hct 38.0 L (42.0-52.0) % Immature Gran % (Auto) 0.90 H (0.001-0.429) % Immature Gran # (Auto) 0.10 H (0.000-0.0310) K/mm3 Lymphocytes % 17.6 L (20-51) % Monocytes % 11.7 H (0.0-9) % Neutrophils # 7.6 H (1.3-6.0) K/mm3 Monocytes # 1.3 H (0.0-1.0) k/mm3 Vancomycin Trough 8.7 L (10.0-20.0) mcg/mL - Exam Constitutional: Present: Alert, Oriented x3, Cooperative, Well developed, Well nourished, No distress ENT Exam: Present: normal ENT inspection, hearing grossly normal, pharynx normal, TMs normal Neck: Present: non-tender, full range of motion, supple, normal inspection, trachea midline Breasts: Present: Exam deferred, Nontender Respiratory: Present: chest non-tender, lungs clear, normal breath sounds, no respiratory distress, no accessory muscle use Cardiovascular/Chest: Present: normal peripheral pulses, regular rate, rhythm, no chest tenderness, no edema, no gallop, no JVD, no murmur, no rub Abdomen: Present: Normal bowel sounds, soft, nontender, nondistended, no rebound tenderness, no hepatospenomegaly, no masses /Rectal: Present: Exam deferred Extremity: Present: normal inspection, no pedal edema, no calf tenderness, normal capillary refill, pelvis stable Skin Exam: Present: normal color, warm/dry, no cyanosis, other - Left index finger with open laceration on dorsal surface Lymphatic: Present: no adenopathy Neurologic: Present: digital marketer II-XII nml as tested, normal cerebellar test, no motor/sensory deficits, alert, normal mood/affect, oriented x 3 Appearance: Present: appropriate appearance, appropriate insight, neat, no memory impairment Eye contact: Present: cooperative, good eye contact, normal speech Thoughts: Present: normal thought pattern, no apparent hallucination Assessment/Plan Plan Narrative: We will follow-up with patient after his procedure and keep him on IV antibiotics. Final culture results are pending. - Problems/Diagnosis (1) Cellulitis of index finger Problem: Acute Qualifiers: Laterality: left Qualified Code(s): L03.012 - Cellulitis of left finger (2) Generalized anxiety disorder Problem: Chronic (3) Seizure Problem: Acute (4) SIRS (systemic inflammatory response syndrome) Problem: Acute (5) Abscess of left index finger Problem: Acute
[2019-10-23] MEDS ORDERED: PIPERACILLIN SODIUM/TAZOBACTAM 3.375 GM in DEXTROSE 5 % IN WATER 100 ML IV SCH ×2 (10:15)
--- NOTE | 2019-10-23 11:30 | ANES ---
Post Anesthesia Discharge - Transfer of Care Transfer of Care handoff given to nurse: Yes - Discharge to [facility] Discharge to [facility]-no complications/pt stable: Yes - Awake in room.
[2019-10-23] MEDS ORDERED: LIDOCAINE HCL 10 ML VIAL IJ ONE (11:33)
--- NOTE | 2019-10-23 11:46 | ANES ---
Post Anesthesia Assessment - Vital Signs Vitals: Last Vital Signs Temp 36.5 C 10/23/19 06:46 Pulse 87 10/23/19 06:46 Resp 14 10/23/19 06:46 BP 121/84 10/23/19 06:46 Pulse Ox 98 10/23/19 06:46 Airway Patency: Normal - Mental Status Level Of Consciousness: Awake, Alert, Appropriate - Pain Level Pain Score: 0 - N/V Assessment Nausea/Vomiting Presence: None Dehydration:: No
[2019-10-23] MEDS: AMOX TR/POTASSIUM CLAVULANATE 875 MG TABLET PO SCH ×2 (12:30→21:45)
[2019-10-23] MEDS: KETOROLAC TROMETHAMINE 30 MG/ML VIAL IV PRN (15:37)
--- NOTE | 2019-10-23 16:08 | OR ---
Operative Report - Dictated Report Narrative: Date: 10/23/2019 Physician: Jaquan Melchor M.D. Macroeconomics Professor: Juan M Blancas PA-C provided a set of essential, skilled, educated hands that assisted in positioning, transfer, retraction, manipulation, irrigation, closure of wounds, and placement of dressings all of which could not be provided by the available surgical crew. Preoperative diagnosis: Left index finger abscess Postoperative diagnosis: Left index finger abscess Procedure: Irrigation and debridement of left index finger abscess including skin and subcutaneous tissue ~8 cm Anesthesia: MAC plus local Complications: None Estimated blood loss: Minimal Tourniquet time: 32 Minutes at 225 mmHg Specimens: None Retained implants: None Drains: None Indications: William is a 48 year-old male who cut his finger with a utility knife approximately 5 days ago and presented in a delayed fashion to the emergency department after the wound became infected. He was admitted to the hospital under the medicine service and started on IV antibiotics. An MRI was obtained which demonstrated diffuse subcutaneous fluid collection over the dorsum of the finger. Orthopedics was consulted for management of his infection. I counseled him that I recommended irrigation and debridement in addition to IV antibiotics to help him clear his infection. The risks and benefits of surgery were discussed with the patient including, but not limited to, bleeding, continued infection, digital nerve/artery injury, wound complications, need for additional procedures, loss of the finger/amputation, and risks with anesthesia. Consent was obtained on the floor. Procedure: After marking the correct extremity in the preoperative holding area, a timeout was performed in the operating room. IV antibiotics had already been started prior to the procedure. A well-padded tourniquet was applied to the operative forearm. The left upper extremity was then prepped and draped in the usual sterile fashion with a Betadine prep. The arm was gravity exsanguinated and the tourniquet was inflated to 225 mmHg. 0.5% Marcaine without epinephrine was used to perform a digital block of the index finger. Inspection of the finger revealed diffuse swelling with an open wound along the ulnar/dorsal aspect of the finger just proximal to the DIP joint. There were several openings in the skin with gross purulent drainage. The open wound over the ulnar aspect of the finger was extended proximally in a mid axial incision fashion. Tenotomy scissors were used to undermine the skin dorsally and volarly resulting in a large amount of purulent drainage. This extended back just proximal to the level of the MCP joint dorsally and to the mid portion of the proximal phalanx volarly. All loculations were broken up with tenotomy scissors. We then proceeded with a more thorough mechanical debridement using a combination of a curette and a rongeur. Any nonviable skin and tissue was removed. After a thorough mechanical debridement, the wound was copiously irrigated with 3 L of lactated Ringer solution. Repeat inspection revealed that we would be left with a small open wound at the previous open wound site. We closed what portions of the incisions we could loosely with interrupted 4-0 nylon to allow the finger to drain. This left this with a small approximately 5 x 8 mm open area without any exposed tendon over the ulnar dorsal aspect of the finger just proximal to the DIP joint. Xeroform, 4 x 4's, and tube gauze were applied. The patient was awoken and transferred to the post-anesthesia care unit in stable condition. All sponge, needle, blade, and instrument counts were correct prior to closing the wounds. The plan will be for the patient to be admitted back to the floor for continued IV antibiotics. We will plan on discharging the patient on outpatient IV antibiotics with close clinical follow-up to monitor wound healing.
[2019-10-24] MEDS: KETOROLAC TROMETHAMINE 30 MG/ML VIAL IV PRN ×2 (06:41→15:04)
[2019-10-24] MEDS: NORMAL SALINE 1,000 ML IV PRN ×2 (06:43→15:02)
[2019-10-24] MEDS: ACETAMINOPHEN 325 MG TABLET PO PRN (08:06)
[2019-10-24] MEDS: AMOX TR/POTASSIUM CLAVULANATE 875 MG TABLET PO SCH (08:06)
[2019-10-24] MEDS: carBAMazepine 200 MG TABLET PO SCH (08:06)
--- NOTE | 2019-10-24 08:58 | DS ---
(1) Cellulitis of index finger Problem: Acute Qualifiers: Laterality: left Qualified Code(s): L03.012 - Cellulitis of left finger (2) Generalized anxiety disorder Problem: Chronic (3) Seizure Problem: Acute (4) SIRS (systemic inflammatory response syndrome) Problem: Acute (5) Abscess of left index finger Problem: Acute Date of Discharge:: 10/24/19 Hospital Course: 48-year-old male admitted for a left finger abscess status post incision and drainage of said abscess was evaluated at bedside this morning was found to be afebrile and in no acute distress. Patient underwent an uneventful and successful debridement and drainage of the involved finger. Since then he describes an improvement in his pain and he maintains stable vitals. The orthopedic surgeon recommended IV antibiotics to cover the MRSA that he is growing and adequate coverage of the other unknown gram-negative that is also growing on culture. During the preop procedure the patient was found to be difficult to find an IV access peripherally therefore a catheter was placed at the base of his neck. It was explained to patient that he will need a PICC line or midline cath for successful administration of IV antibiotics and he eventually agreed to cath placement. Therefore consultation to anesthesia was placed. The patient was found to be growing a gram-negative unknown bacteria so we will follow-up with the final culture results in order to ensure adequate antibacterial coverage. Follow-up visit with Ortho has been arranged. Addendum: Midline line cath was successfully place by the anestheseliogist for administration of IV antibiotics. Px will also be discharged with additional Po Augmentin to cover for Klebsiella in the wound. Procedures Performed: see notes below - Status post debridement, incision and drainage of left index finger Results and Findings: Pending Mircobiology Results 10/21/19 17:15 Blood Blood Culture - Preliminary NO GROWTH AFTER 48 HOURS 10/21/19 16:56 Blood Blood Culture - Preliminary NO GROWTH AFTER 48 HOURS 10/21/19 17:55 Finger Wound Culture - Preliminary Methicillin Resistant S.aureus Gram Negative Bacilli Lab Pending Results 10/21/19 16:56: WBC 18.6 H, RBC 4.81, Hgb 13.4 L, Hct 40.5 L, MCV 84.2, MCH 2 7.9, MCHC 33.1, RDW 13.5, Plt Count 445, MPV 8.6, Neutrophils % (Manual) 61, Band Neuts % (Manual) 2, Lymphocytes % (Manual) 25, Monocytes % (Manual) 11 H, Basophils % (Manual) 1, Neutrophils # (Manual) 11.3 H, Lymphocytes # (Manual) 4.7 H, Monocytes # (Manual) 2.0 H, Basophils # (Manual) 0.2 H, Platelet Estimate Normal, RBC Morphology Normal 10/21/19 16:56: Sodium 139, Plasma Sodium 139, Potassium 3.9, Chloride 102, Carbon Dioxide 28.7, Anion Gap 12.2, BUN 10, Creatinine 1.07, Est GFR (Non-Af Amer) 78 D, BUN/Creatinine Ratio 9.3, Random Glucose 116 H, Calcium 9.2, Ca lcium Adj for Albumin 9.6, Total Bilirubin 0.1, AST 15, ALT 20, Alkaline Phosphatase 96, C-Reactive Prot, Quant 6.3 H, Total Protein 7.6, Albumin 3.1 L, Carbamazepine 0.0 L 10/21/19 16:56: Lactic Acid, Venous 2.3 H* 10/21/19 19:59: Lactic Acid, Venous 1.3 10/22/19 06:26: WBC 14.5 H D, RBC 4.55 L, Hgb 12.4 L, Hct 38.6 L, MCV 84.8, MCH 27.3, MCHC 32.1, RDW 13.7, Plt Count 428, MPV 8.9, Neutrophils % (Manual) 73, Band Neuts % (Manual) 1, Lymphocytes % (Manual) 18 L, Monocytes % (Manual) 6, Eosinophils % (Manual) 2, Neutrophils # (Manual) 10.6 H, Lymphocytes # (Manual) 2.6, Monocytes # (Manual) 0.9, Eosinophils # (Manual) 0.3, Platelet Estimate Normal, RBC Morphology Normal 10/22/19 06:26: Sodium 140, Plasma Sodium 140, Potassium 3.8, Chloride 105, Carbon Dioxide 29.1, Anion Gap 9.7, BUN 9, Creatinine 0.91, Est GFR (Non-Af Amer) 94 D, BUN/Creatinine Ratio 9.9, Random Glucose 98, Calcium 8.7, Calcium Adj for Albumin 9.4, Total Bilirubin 0.2, AST 15, ALT 19, Alkaline Phosphatase 88, Total Protein 6.7, Albumin 2.7 L 10/22/19 17:50: SARS-CoV-2 (PCR) Not detected 10/23/19 06:10: WBC 11.3 H D, RBC 4.48 L, Hgb 12.2 L, Hct 38.0 L, MCV 84.8, MCH 27.2, MCHC 32.1, RDW 13.5, Plt Count 425, MPV 8.6, Immature Gran % (Auto) 0.90 H, Immature Gran # (Auto) 0.10 H, Neutrophils % 66.7, Lymphocytes % 17.6 L, Monocytes % 11.7 H, Eosinophils % 2.3, Basophils % 0.8, Nucleated RBC % 0.0, Neutrophils # 7.6 H, Lymphocytes # 1.99, Monocytes # 1.3 H, Eosinophils # 0.3, Absolute Basophils 0.1 10/23/19 09:19: Vancomycin Trough 8.7 L Discharge Location: Home Disposition: Home self-care Condition: Stable Face to Face Encounter completed per [facility] Guidelines: No Discharge Activity: Activity as tolerated Discharge Diet: General/regular food Additional Patient Instructions (free text): Follow up with Orthopedic office Dr Melchor on SundayOctober 26 at 10:00am. IV antibiotics in [facility] twice a day. 7am and 7pm. Keep dressing clean/dry/intact. Ortho will redress it at your appointment. Prescriptions (Any new or edited meds): Amox Tr/Potassium Clavulanate [Augmentin 875-125 Tablet] 875 mg PO Q12H 10 Days #20 tab Transmission Status: Pending to [facility], [place], [place] Vancomycin/Water For Inj (Peg) [Vancomycin] 1.5 gm IV Q12H 7 Days bag Complete Home Medications List: Complete Home Medication List: carBAMazepine [Tegretol] 200 mg PO BID #60 tab 11/18/17 alprazolam 2 mg tablet 2 mg PO BID PRN #60 tab 10/13/19 Amox Tr/Potassium Clavulanate [Augmentin 875-125 Tablet] 875 mg PO Q12H 10 Days #20 tab 10/24/19 Vancomycin/Water For Inj (Peg) [Vancomycin] 1.5 gm IV Q12H 7 Days bag 10/24/19
[2019-10-24] MEDS ORDERED: VANCOMYCIN/WATER FOR INJ (PEG) 1.5 GM/300 ML BAG IV SCH (09:00)
--- NOTE | 2019-10-24 11:56 | PN ---
Jose Note - Interim Date: 10/24/19 Time: 07:30 Narrative: 10/24/19 11:52 Patient was seen this morning. Exam revealed continued sensation through the bandage on the left index finger, no significant erythema or drainage on the bandage or extending proximally, mild edema of patient's hand. Discussed with patient the continued need of IV antibiotics due to the significance of this infection. Discussed follow-up in 5 days on 10/27/2019 to monitor wound healing and perform a dressing change. Discussed continuing with these postoperative dressing in place until follow-up. Discussed with patient need to continue IV antibiotics, discussed with pharmacy use of vancomycin due to se nsitivity and adjusting patient's dose accordingly. Note there was a gram negative bacilli on initial cultures, it is been covered with p.o. Augmentin. We repeated cultures yesterday during surgery including swabs as well as tissue cultures, will determine if this gram-negative pathogen appears in the second set of cultures to determine if further treatment is warranted. Did discuss possible transition of IV antibiotics to orals at a later date once appropriate wound is been healing. Discussed with patient continued need for monitoring and possible outcomes including possible amputation versus repeat surgery. He expressed understanding agreed to proceed with close monitoring and IV antibiotics as well as follow-up. Discussed need to maintain an IV at all times with the patient due to twice daily IV antibiotics in the [place]. Discussed with patient he was not to use this IV site for any other alternative uses. Note he does have a significant history of drug use. Patient expressed understanding and stated he would not use any remaining IV site for any outside activities. Discussed with patient in detail risks and complications that could arise if he did not follow this advice, he expressed understanding agreed with this treatment plan. Continue with medicine management for any other acute questions or concerns. Also continue with medicine medicine for chronic management of his medical problems.
--- NOTE | 2019-10-24 13:39 | ANES ---
Anesthesia Procedure Note Procedure Note: ANESTHESIA PROCEDURE NOTE Date of procedure: 10/24/2019. Time of procedure: 1310. Performed by: Omari Vicente CRNA Oral Surgeon: None . Preprocedure diagnosis: Need for long-term IV antibiotic therapy. Post procedure diagnosis: Same. Procedure: PICC line placed Indications: Long-term IV antibiotics. Findings: Patient's left antecubital fossa was prepped sterilely and draped. 22-gauge Angiocath IV was used for venous access. Guidewire was placed without resistance. Dual-lumen PICC line was inserted with minimal resistance. Ports flush and aspirate easily. Line secured in place. Chest x-ray was ordered to confirm line placement. Chest x-ray indicates that PICC line advanced into u pper arm and then coiled back. PICC line removed. EBL: Minimal. Fluids: N/A. Specimen: N/A. Post procedure condition: The patient tolerated the procedure well. No complications were noted. Thank you for this consultation Omari Vicente CRNA
--- NOTE | 2019-10-24 15:01 | ANES ---
Anesthesia Procedure Note Procedure Note: ANESTHESIA PROCEDURE NOTE Date of Procedure: 10/24/2019 Time of procedure: 1430. Performed by: VELMA Lawrence CRNA, MSN Preprocedure diagnosis: Cellulitis, long-term antibiotic therapy requirement. Post procedure diagnosis: Same. Procedure: PICC line placement. Indications: Long-term antibiotic therapy as outpatient. Findings: See below. Details of the procedure: After surveying the patient's venous access with ultrasound earlier in the day, I returned and after opening the PICC line kit, the ultrasound machine continuously gave a error reading. After sending the ultrasound to [place], the catheter was trimmed to 39 centimeters and flushed with sterile saline solution. A full prep with chlorhexidine and drape was performed, creating a sterile field over a site on the mid biceps region where an adequate vein was identified. Lidocaine 1% was injected at the intended site of insertion and A #22-gauge IV was inserted. A guidewire was threaded through the 22-gauge catheter but met resistance at approximately 20 cm. I then converted the procedure to what is essentially a midline catheter. The catheter was then trimmed to 15 cm, the insertion site was dilated after a small shayla was made at the insertion site and the catheter passed with ease. The catheter was threaded to its hub, aspiration of blood was easily achieved and the ports were again flushed with saline solution. The catheter was dressed with sterile dressing available in the PICC kit and a chest x-ray for placement was ordered. EBL: Minimal. Fluids: N/A. Specimen: N/A. Considering the catheter extended only 15 cm I felt no need for x-ray exposure to document. Post procedure condition: The patient tolerated the procedure well. No complications were noted. Thank you for this consultation. Reggie Villaseñor CRNA, CUT FILE CLERK, MSN
[2019-10-24 17:09] VITALS: BP 135/77
--- NOTE | 2019-10-26 10:10 | PN ---
Jose Note - Interim Date: 10/26/19 Time: 10:08 Narrative: 10/26/19 10:08 Based on culture and sensitivity from intraoperative tissue cultures will transition patient to levofloxacin 500 mg daily for 10 days. Will d/c use of augmentin. Patient will continue with previously scheduled IV abx as well. He will continue with planned f/u.
== END 2019-10-24 17:30 | disposition home or self-care (01) ==
LOC: ER 16:01 → MS 16:01
PROVIDERS: ADMIT Family Medicine; ATTEND Family Medicine
CPT/HCPCS: 36415; 71010; 71045; 73130; 73220; 80053; 80156; 80202; 83605; 85025; 86140; 87040; 87070; 87077; 87186; 96365; 96366; 96367; 96375; 96376; 99284; 99285; A9576; G0378